=== PATIENT | female | born 1985 | race Caucasian/White ===

== ENCOUNTER 2017-01-14 12:16 | Emergency (ER) | payer OTHER ==
--- NOTE | 2017-01-14 12:56 | PROVIDER DOCUMENTATION ---
HPI-Psychological Disorder - General Chief Complaint: Psych Stated Complaint: NEED EVAL Time Seen by Provider: 01/14/17 12:35 Source: family Allergies/Adverse Reactions: Patient Allergies Allergy/AdvReac Type Severity Reaction Status Date / Time No Known Allergies Allergy Verified 01/14/17 13:06 Home Medications: Home Medication List Medication Instructions Recorded Confirmed Last Taken Type Paliperidone Palmitate [Invega 117 mg IM Q30D #1 dose 09/20/16 01/14/17 Rx Sustenna] Alprazolam [Xanax] 0.25 mg PO TID 01/14/17 01/14/17 Unknown History - History of Present Illness-Psych Nature of Presenting Problem: 31 yo WF with hx of schizophrenia and bipolar presents with deterioration of baseline status over the last days to weeks. She is not sleeping, not eating. Has periodic nonverbal bouts. She is wandering. Although there have been no direct threats, the family feels threatened by her behavior. Onset/Duration: reports: 5 days ago Timing: reports: still present, intermittent Situational problems related to:: reports: other Psychiatric Complaints: reports: agitated, confused, frustrated, hallucinating, impaired concentration, insomnia Substance Use: reports: denies Previous psych related hospitalizations?: Yes Patient arrived by:: private car Similar Symptoms Previously?: Yes Recently seen or treated by another doctor?: No - Suicidal Ideation Suicide Risk Assessment: rational thought loss (hallucinations), schizophrenia, bi-polar, frightened friends-family. negative: male sex, age <19, age >65, depressed Clinician's estimation of suicide risk?: uncertain risk Review of Systems - Adult - REVIEW OF SYSTEMS - ADULT ROS:: ROS per family Constitutional: reports: no symptoms reported Eyes: reports: no symptoms reported Ears, Nose, Mouth & Throat: reports: no symptoms reported Cardiovascular: reports: no symptoms reported Respiratory: reports: no symptoms reported Gastrointestinal: reports: poor appetite Genitourinary: reports: no symptoms reported Musculoskeletal: reports: no symptoms reported Integumentary: reports: no symptoms reported Neurological: reports: no symptoms reported Psychiatric: reports: see HPI Endocrine: reports: no symptoms reported Hematologic/Lymphatic: reports: no symptoms reported Allergic/Immunologic: reports: no symptoms reported All Other Systems: Reviewed and Negative Past History - Adult - PAST MEDICAL HISTORY-ADULT Review of Records: reports: Old Records Reviewed, Nursing Assessment Review, Medications Reviewed, Social history reviewed & non-contributory. Psychiatric: reports: schizophrenia (bipolar), other (poly substance abuse) - FAMILY HISTORY Family History: reviewed, not pertinent - SOCIAL HISTORY Smoking: cigarettes Substance Use: denies Alcohol Use Frequency: occasionally Living Situation: family Physical Exam-Psych Focus - Physical Exam-Psych Initial Vital Signs Reviewed: Yes (almost non-verbal) Appearance: alert, impaired insight Neurological: alert, calm Behavior/Eye Contact/Speech: cooperative, threatening eye contact HENMT: moist mucous membranes, normal ENT inspection Neck: non-tender Respiratory: lungs clear, normal breath sounds, no pleuratic chest pain, no respiratory distress, no accessory muscle use Cardiovascular: normal peripheral pulses, regular rate, rhythm, no edema, no gallop, no JVD, no murmur Abdominal Exam: normal bowel sounds, non tender, soft Lymphatic: no adenopathy Back Exam: normal inspection Extremity: no pedal edema, no calf tenderness Integumentary: normal color Progress - PLAN OF CARE/RESULTS Progress/Plan/Lab Results: Vital Signs Temp Pulse Resp BP Pulse Ox 01/14/17 12:19 98.1 F 79 18 121/61 100 No Known Allergies Allergy (Verified 01/14/17 13:06) Paliperidone Palmitate [Invega Sustenna] 117 mg IM Q30D #1 dose 09/20/16 Alprazolam [Xanax] 0.25 mg PO TID 01/14/17 Laboratory 01/14/17 01/14/17 01/14/17 13:05 13:05 13:05 WBC RBC Hgb Hct MCV MCH MCHC RDW Std Deviation Plt Count MPV Immature Gran % (Auto) Neut % (Auto) Lymph % (Auto) [place] % (Auto) Eos % (Auto) Baso % (Auto) Immature Gran # (Auto) Neut # (Auto) Lymph # (Auto) [place] # (Auto) Eos # (Auto) Baso # (Auto) Sodium Potassium Chloride Carbon Dioxide Anion Gap BUN Creatinine Estimated GFR/1.73 m2 BUN/Creatinine Ratio Glucose Calculated Osmolality Calcium Total Bilirubin AST ALT Alkaline Phosphatase Total Protein Albumin Globulin Albumin/Globulin Ratio Vitamin B12 TSH Free T4 Urine Source CLEAN CATCH Urine Color ORANGE Urine Turbidity TURBID Urine pH 5.5 Ur Specific [place] 1.036 Urine Protein 50 A Ur Glucose (Stick) NEGATIVE Ur Ketones (Stick) TRACE A Urine Blood TRACE A Urine Nitrite NEGATIVE Urine Bilirubin SMALL A Urobilinogen Dipstick 3 A Urine Leukocytes SMALL A Urine WBC (Auto) <10 Urine RBC (Auto) 10-20 A U Epithel Cells (Auto) <10 Urine Bacteria (Auto) 1+ Urine Test NEGATIVE Urine Opiates Screen NONE DETECTED Ur Oxycodone Screen NONE DETECTED Ur Methadone, Qual NONE DETECTED Ur Barbiturates Screen NONE DETECTED Ur Phencyclidine Scrn NONE DETECTED Ur Amphetamines Screen PRESUMPTIVE POSITIVE A U Benzodiazepines Scrn PRESUMPTIVE POSITIVE A Urine Cocaine Screen NONE DETECTED U Cannabinoids Screen NONE DETECTED Plasma/Serum Ethyl Alc 01/14/17 01/14/17 01/14/17 12:58 12:58 12:58 WBC 8.31 RBC 4.05 L Hgb 12.7 Hct 35.5 L MCV 87.7 MCH 31.4 H MCHC 35.8 RDW Std Deviation 12.2 Plt Count 375 MPV 9.8 Immature Gran % (Auto) 0.0 Neut % (Auto) 63.6 Lymph % (Auto) 26.7 [place] % (Auto) 8.5 Eos % (Auto) 1.0 Baso % (Auto) 0.2 Immature Gran # (Auto) 0.00 Neut # (Auto) 5.28 Lymph # (Auto) 2.22 [place] # (Auto) 0.71 H Eos # (Auto) 0.08 Baso # (Auto) 0.02 Sodium 138 Potassium 3.8 Chloride 100 Carbon Dioxide 24 L Anion Gap 14 BUN 4 L Creatinine 0.7 Estimated GFR/1.73 m2 > 60 BUN/Creatinine Ratio 6 Glucose 118 H Calculated Osmolality 274 Calcium 8.7 L Total Bilirubin 0.35 AST 11 ALT 9 L Alkaline Phosphatase 71 Total Protein 6.9 Albumin 4.0 Globulin 2.9 Albumin/Globulin Ratio 1.4 Vitamin B12 451 TSH 0.77 Free T4 1.28 Urine Source Urine Color Urine Turbidity Urine pH Ur Specific [place] Urine Protein Ur Glucose (Stick) Ur Ketones (Stick) Urine Blood Urine Nitrite Urine Bilirubin Urobilinogen Dipstick Urine Leukocytes Urine WBC (Auto) Urine RBC (Auto) U Epithel Cells (Auto) Urine Bacteria (Auto) Urine Test Urine Opiates Screen Ur Oxycodone Screen Ur Methadone, Qual Ur Barbiturates Screen Ur Phencyclidine Scrn Ur Amphetamines Screen U Benzodiazepines Scrn Urine Cocaine Screen U Cannabinoids Screen Plasma/Serum Ethyl Alc 01/14/17 12:58 WBC RBC Hgb Hct MCV MCH MCHC RDW Std Deviation Plt Count MPV Immature Gran % (Auto) Neut % (Auto) Lymph % (Auto) [place] % (Auto) Eos % (Auto) Baso % (Auto) Immature Gran # (Auto) Neut # (Auto) Lymph # (Auto) [place] # (Auto) Eos # (Auto) Baso # (Auto) Sodium Potassium Chloride Carbon Dioxide Anion Gap BUN Creatinine Estimated GFR/1.73 m2 BUN/Creatinine Ratio Glucose Calculated Osmolality Calcium Total Bilirubin AST ALT Alkaline Phosphatase Total Protein Albumin Globulin Albumin/Globulin Ratio Vitamin B12 TSH Free T4 Urine Source Urine Color Urine Turbidity Urine pH Ur Specific [place] Urine Protein Ur Glucose (Stick) Ur Ketones (Stick) Urine Blood Urine Nitrite Urine Bilirubin Urobilinogen Dipstick Urine Leukocytes Urine WBC (Auto) Urine RBC (Auto) U Epithel Cells (Auto) Urine Bacteria (Auto) Urine Test Urine Opiates Screen Ur Oxycodone Screen Ur Methadone, Qual Ur Barbiturates Screen Ur Phencyclidine Scrn Ur Amphetamines Screen U Benzodiazepines Scrn Urine Cocaine Screen U Cannabinoids Screen Plasma/Serum Ethyl Alc Orders Category Date Time Status ALCOHOL BLOOD Stat Lab 01/14/17 12:58 Completed CBC WITH ELECTRONIC DIFF [HEME] Stat Lab 01/14/17 12:58 Completed COMPREHENSIVE METABOLIC PANEL [CHEM] Stat Lab 01/14/17 12:58 Completed FREE T4 Stat Lab 01/14/17 12:58 Completed TEST-URINE [PREG] Stat Lab 01/14/17 13:05 Completed TSH Stat Lab 01/14/17 12:58 Completed URINALYSIS W/POSS RFLX CULT [URINALYSIS] Stat Lab 01/14/17 13:05 Completed URINE DRUG SCREEN Stat Lab 01/14/17 13:05 Completed VITAMIN B12 Stat Lab 01/14/17 12:58 Completed 1515 [facility] contacted. Initially they did not want to evaluate since she had no SI or HI but due families insistence about her decline, they agreed to evaluate. 1625 Notified by nurse that clinical psychologist will try to find placement. Recommended sedation. Departure - Departure Time of Disposition Order: 16:38 DIAGNOSIS: Acute exacerbation of psychosis Schizophrenia Qualifiers: Schizophrenia type: unspecified Qualified Code(s): F20.9 - Schizophrenia, unspecified Disposition: [facility] Certified Medical Emergency: Emergent Condition: Fair
[2017-01-14 13:08] LABS: MANUAL DIFF NEEDED? NO
[2017-01-14 13:11] LABS: BASO% 0.2 % (0.0-0.8); EOS# 0.08 X1000 (0.0-0.7); HEMATOCRIT 35.5 % (37.0-47.0); HEMOGLOBIN 12.7 g/dL (12.0-16.0); LYMPH# 2.22 X1000 (1.2-3.4); LYMPH% 26.7 % (20.5-51.1); MCH 31.4 PG (27-31); MCHC 35.8 g/dL (33-37); MCV 87.7 FL (81-99); MONO# 0.71 X1000 (0.11-0.59); MONO% 8.5 % (1.7-9.3); MPV 9.8 FL (7.4-10.4); NEUT% 63.6 % (42.2-75.2); PLT 375 X1000 (130-400); RBC 4.05 XMIL (4.2-5.4)
[2017-01-14 13:20] LABS: URINE CULTURE NEEDED? NO; URINE MICRO REVIEW NEEDED? NO; URINE SOURCE CLEAN CATCH
[2017-01-14 13:26] LABS: AGAP 14; ALKALINE PHOSPHATASE 71 U/L (32-104); BUN 4 mg/dL (8-22); CALCIUM 8.7 mg/dL (8.8-10.2); CHLORIDE 100 mmol/L (98-107); COSMO 274; GOT 11 U/L (10-30); GPT 9 U/L (10-36); POTASSIUM 3.8 mmol/L (3.5-5.1); SODIUM 138 mmol/L (136-145); TCO2 24 mmol/L (25-35); TOTAL BILIRUBIN 0.35 mg/dL (0.20-1.00); TOTAL PROTEIN 6.9 g/dL (6.3-8.3)
[2017-01-14 13:29] LABS: BILIRUBIN URINE SMALL (NEGATIVE); BLOOD URINE TRACE (NEGATIVE); COLOR ORANGE; GLUCOSE URINE NEGATIVE (NEGATIVE); LEUKOCYTES URINE SMALL (NEGATIVE); NITRITE URINE NEGATIVE (NEGATIVE); PH URINE 5.5; PROTEIN URINE 50 mg/dL (NEGATIVE); SP GRAVITY URINE 1.036; TURBIDITY URINE TURBID (CLEAR); UROBILINOGEN URINE 3 mg/dL (NORMAL)
[2017-01-14 13:31] LABS: UR EPITHELIAL CELLS <10 /HPF (<10); URINE BACTERIA 1+ /HPF; URINE WBC <10 /HPF (<10)
[2017-01-14 13:46] LABS: FREE T4 1.28 ng/dL (0.93-1.70)
[2017-01-14 13:52] LABS: UR AMPHETAMINES QUAL PRESUMPTIVE POSITIVE (NONE DETECT); UR BARBITUATES QUAL NONE DETECTED (NONE DETECT); UR BENZODIAZEPIN QUAL PRESUMPTIVE POSITIVE (NONE DETECT); UR CANNABINOIDS QUAL NONE DETECTED (NONE DETECT); UR COCAINE QUAL NONE DETECTED (NONE DETECT); UR METHADONE QUAL NONE DETECTED (NONE DETECT); UR OPIATES QUAL NONE DETECTED (NONE DETECT); UR OXYCODONE QUAL NONE DETECTED (NONE DETECT); UR PCP QUAL NONE DETECTED (NONE DETECT)
[2017-01-14] MEDS ORDERED: XANAX PO ONE (16:35)
[2017-01-14] MEDS ORDERED: GEODON IM ONE (16:36)
[2017-01-14] MEDS ORDERED: STERILE WATER INJ. INJ ONE (16:36)
[2017-01-15 01:17] VITALS: BP 106/57
== END 2017-01-15 01:45 ==
LOC: ED 12:16
DX: F23 Brief psychotic disorder (principal); F20.9 Schizophrenia, unspecified; R45.1 Restlessness and agitation; R41.0 Disorientation, unspecified; F31.9 Bipolar disorder, unspecified; F17.210 Nicotine dependence, cigarettes, uncomplicated; Z79.899 Other long term (current) drug therapy
CPT/HCPCS: 80053; 81001; 81025; 82607; 84439; 84443; 85025; G0480; J3486; 80320; 80324; 80345; 80346; 80349; 80353; 80358; 80361; 80365; 83992